=== PATIENT | female | born 1980 ===

== ENCOUNTER 2017-10-22 13:02 | Emergency (ER) | payer MEDICAID ==
[2017-10-22 13:19] VITALS: BP 125/92
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
== END 2017-10-22 14:57 | disposition home or self-care (01) ==
LOC: UCEAST 13:02
DX: A63.0 Anogenital (venereal) warts (principal); R19.5 Other fecal abnormalities; Z87.891 Personal history of nicotine dependence; F11.90 Opioid use, unspecified, uncomplicated
CPT/HCPCS: 87252; 87480; 87491; 87510; 87591; 99212; G0463

== ENCOUNTER 2017-11-07 11:20 | Emergency (ER) | payer MEDICAID ==
[2017-11-07 11:40] VITALS: BP 136/89
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
[2017-11-07] MEDS ORDERED: Nitrofurantoin Macrocrystals* 50 MG CAP PO ONE (12:37)
[2017-11-07] MEDS ORDERED: Phenazopyridine TAB* 100 MG PO ONE (12:38)
== END 2017-11-07 12:38 | disposition home or self-care (01) ==
LOC: UCEAST 11:20
DX: N39.0 Urinary tract infection, site not specified (principal); I10 Essential (primary) hypertension; Z87.891 Personal history of nicotine dependence; Z88.0 Allergy status to penicillin
CPT/HCPCS: 81003; 81025; 87086; 99211; 99212; A9270-GY; G0463